=== PATIENT | female | born 1995 | race Caucasian/White ===

== ENCOUNTER → 2020-04-09 | Outpatient (CLI) | LOC: M LABSMTC 09:36 | PROVIDERS: ATTEND Pediatrics | DX: Z20.828 Contact with and (suspected) exposure to other viral communicable diseases (principal) ==

== ENCOUNTER 2020-04-30 19:41 | Emergency (ER) | payer OTHER ==
[~2020-04-30] VITALS: Ht 149.9 cm; Wt 69.4 kg
[2020-04-30] MEDS ORDERED: ENSK1TAB3 PO (19:51)
[2020-04-30] MEDS ORDERED: CETI-24 PO (19:51)
[2020-04-30 21:25] LABS: BASO # 0.1 10^3/uL (0.0-0.2); BASO % 0.7 % (0.0-1.0); EOS # 0.2 10^3/uL (0.0-0.5); EOS % 2.6 % (0.0-3.0); HEMATOCRIT 39.5 % (36.0-47.0); HEMOGLOBIN 12.8 g/dl (12.0-15.5); LYMPH # 2.3 10^3/uL (1.5-5.0); LYMPH % 31.9 % (24.0-44.0); MEAN CORPUSCULAR HEMOGLOBIN 27.7 pg (27.0-33.0); MEAN CORPUSCULAR HGB CONC 32.4 g/dl (32.0-36.5); MEAN CORPUSCULAR VOLUME 85.5 fl (80.0-96.0); MONO # 0.4 10^3/uL (0.0-0.8); MONO % 5.6 % (0.0-5.0); NEUTROPHILS # 4.3 10^3/uL (1.5-8.5); NEUTROPHILS % 58.9 % (36.0-66.0); PLATELET COUNT, AUTOMATED 336 10^3/uL (150-450); RED BLOOD COUNT 4.62 10^6/uL (4.00-5.40); WHITE BLOOD COUNT 7.3 10^3/uL (4.0-10.0)
[2020-04-30] MEDS ORDERED: ONDANSETRON 4MG/2ML VIAL IV ONE (21:30)
[2020-04-30] MEDS ORDERED: ISOVUE-370 76% 100ML VIAL As Ordered ONE (21:40)
[2020-04-30 21:57] LABS: CK-MB VALUE MASS < 1.0 NG/ML (<3.6); CPK CREATINE PHOSPHOKINASE 138 U/L (26-192); MB/CK RELATIVE INDEX 0.72 (< OR =4)
[2020-04-30 21:58] LABS: TROPONIN I < 0.02 NG/ML (< 0.10)
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
[2020-04-30 23:46] VITALS: BP 125/74
== END 2020-05-01 00:09 | disposition home or self-care (01) ==
LOC: M ED 19:41
DX: S16.1XXA Strain of muscle, fascia and tendon at neck level, initial encounter (principal); S00.83XA Contusion of other part of head, initial encounter; S80.01XA Contusion of right knee, initial encounter; V49.49XA Driver injured in collision with other motor vehicles in traffic accident, initial encounter; Y92.410 Unspecified street and highway as the place of occurrence of the external cause; J45.909 Unspecified asthma, uncomplicated; I47.1 Supraventricular tachycardia; Z79.899 Other long term (current) drug therapy; Z79.3 Long term (current) use of hormonal contraceptives; Z88.0 Allergy status to penicillin; Z88.8 Allergy status to other drugs, medicaments and biological substances; Z91.018 Allergy to other foods
CPT/HCPCS: 70450; 70486; 71260; 72125; 73030; 73564; 80047; 82550; 82553; 84484; 84702; 85025; 96374; 99283; J2405; Q9967

== ENCOUNTER → 2020-09-18 | Outpatient (CLI) | payer OTHER ==
[~2020-09-18] MED LIST: CETI-24 PO; ENSK1TAB3 PO
[2020-09-18 12:37] LABS: INR 0.93; PARTIAL THROMBOPLASTIN TIME 28.4 SECONDS (24.2-38.5); PROTHROMBIN TIME 12.6 SECONDS (12.5-14.3)
[2020-09-18 12:40] LABS: BASO # 0.1 10^3/uL (0.0-0.2); BASO % 0.7 % (0.0-1.0); EOS # 0.4 10^3/uL (0.0-0.5); EOS % 5.2 % (0.0-3.0); HEMATOCRIT 40.4 % (36.0-47.0); HEMOGLOBIN 13.3 g/dl (12.0-15.5); LYMPH # 3.1 10^3/uL (1.5-5.0); LYMPH % 45.7 % (24.0-44.0); MEAN CORPUSCULAR HGB CONC 32.9 g/dl (32.0-36.5); MONO # 0.5 10^3/uL (0.0-0.8); MONO % 7.2 % (2.0-8.0); NEUTROPHILS # 2.8 10^3/uL (1.5-8.5); NEUTROPHILS % 40.9 % (36.0-66.0); PLATELET COUNT, AUTOMATED 286 10^3/uL (150-450); RED BLOOD COUNT 4.59 10^6/uL (4.00-5.40); WHITE BLOOD COUNT 6.8 10^3/uL (4.0-10.0)
[2020-09-18 12:55] LABS: BLOOD UREA NITROGEN 14 MG/DL (7-18); CALCIUM LEVEL 9.4 MG/DL (8.5-10.1); CARBON DIOXIDE LEVEL 25 MEQ/L (21-32); CHLORIDE LEVEL 108 MEQ/L (98-107); GLOMERULAR FILTRATION RATE > 60.0 (>60); GLUCOSE, FASTING 123 MG/DL (70-100); POTASSIUM SERUM 3.8 MEQ/L (3.5-5.1); SODIUM LEVEL 140 MEQ/L (136-145)
== END ==
LOC: M WUC 10:02
DX: I47.1 Supraventricular tachycardia (principal)

== ENCOUNTER → 2020-09-29 | Outpatient (CLI) | payer SELFPAY | LOC: M LABSMTC 09:35 | PROVIDERS: ATTEND Pediatrics | DX: Z20.822 Contact with and (suspected) exposure to COVID-19 (principal) ==

== ENCOUNTER → 2020-11-28 | Outpatient (REF) | payer OTHER ==
[2020-11-28 15:18] LABS: CHLAMYDIA DNA AMPLIFICATION NEGATIVE (NEGATIVE); GC DNA AMPLIFICATION NEGATIVE (NEGATIVE)
== END ==
LOC: M SFHCWAGY 13:04
PROVIDERS: ATTEND Nurse Practitioner Women's Health
DX: Z11.3 Encounter for screening for infections with a predominantly sexual mode of transmission (principal); Z12.4 Encounter for screening for malignant neoplasm of cervix

== ENCOUNTER → 2021-06-07 | Outpatient (REF) | LOC: M EMP 08:33 | PROVIDERS: ATTEND Family Medicine | DX: Z11.52 Encounter for screening for COVID-19 (principal) ==

== ENCOUNTER → 2021-06-11 | Outpatient (REF) | LOC: M LABSMTC 10:04 | PROVIDERS: ATTEND Pediatrics | DX: Z11.52 Encounter for screening for COVID-19 (principal); Z20.822 Contact with and (suspected) exposure to COVID-19 ==

== ENCOUNTER 2022-03-14 15:22 | Emergency (ER) | payer OTHER, BC ==
[~2022-03-14] VITALS: Ht 147.3 cm; Wt 60.1 kg
[2022-03-14 16:00] LABS: BASO # 0.1 10^3/uL (0.0-0.2); BASO % 0.9 % (0.0-1.0); EOS # 0.4 10^3/uL (0.0-0.5); EOS % 4.8 % (0.0-3.0); HEMATOCRIT 40.3 % (36.0-47.0); HEMOGLOBIN 13.5 g/dl (12.0-15.5); LYMPH # 3.2 10^3/uL (1.5-5.0); MEAN CORPUSCULAR HEMOGLOBIN 29.8 pg (27.0-33.0); MEAN CORPUSCULAR HGB CONC 33.5 g/dl (32.0-36.5); MONO # 0.4 10^3/uL (0.0-0.8); MONO % 5.4 % (2.0-8.0); NEUTROPHILS # 3.7 10^3/uL (1.5-8.5); NEUTROPHILS % 47.6 % (36.0-66.0); PLATELET COUNT, AUTOMATED 342 10^3/uL (150-450); RED BLOOD COUNT 4.53 10^6/uL (4.00-5.40); WHITE BLOOD COUNT 7.8 10^3/uL (4.0-10.0)
[2022-03-14 16:41] LABS: ALBUMIN 3.8 GM/DL (3.2-5.2); ALT/SGPT 21 U/L (12-78); BILIRUBIN,DIRECT 0.2 MG/DL (0.0-0.2); BILIRUBIN,TOTAL 0.7 MG/DL (0.2-1.0); BLOOD UREA NITROGEN 10 MG/DL (7-18); CALCIUM LEVEL 9.9 MG/DL (8.5-10.1); CARBON DIOXIDE LEVEL 25 MEQ/L (21-32); CHLORIDE LEVEL 106 MEQ/L (98-107); GLOMERULAR FILTRATION RATE > 60.0 (>60); GLUCOSE, FASTING 94 MG/DL (70-100); LIPASE 62 U/L (73-393); POTASSIUM SERUM 3.9 MEQ/L (3.5-5.1); SODIUM LEVEL 137 MEQ/L (136-145); TOTAL PROTEIN 7.4 GM/DL (6.4-8.2)
[2022-03-14 16:54] LABS: HCG, SERUM QUALITATIVE NEGATIVE (NEGATIVE)
[2022-03-14 17:03] VITALS: BP 118/67
[2022-03-14] MEDS ORDERED: KETOROLAC 30 MG/ML 1ML VIAL IV ONE (17:40)
[2022-03-14] MEDS ORDERED: ONDANSETRON 4MG 2ML VIAL IV ONE (19:00)
[2022-03-14] MEDS ORDERED: MAGNESIUM CITRATE 300 ML BTL PO ONE (19:55)
== END 2022-03-14 20:08 | disposition home or self-care (01) ==
LOC: M ED 17:23
DX: K59.00 Constipation, unspecified (principal); R10.31 Right lower quadrant pain; Z79.3 Long term (current) use of hormonal contraceptives; Z88.0 Allergy status to penicillin; Z91.89 Other specified personal risk factors, not elsewhere classified; Z91.013 Allergy to seafood
CPT/HCPCS: 74176; 76830; 76856; 80048; 80076; 81000; 81015; 83690; 84703; 85025; 87086; 93976; 96374; 96375; 99284; J1885; J2405